=== PATIENT | male | born 1955 | race Caucasian/White ===

== ENCOUNTER → 2017-09-13 | Outpatient (CLI) | payer OTHER ==
[~2017-09-13] MED LIST: ALLOPURINOL; ALLOPURINOL100 MG PO; AMLODIPINE; ASPIRIN ADULT L81 M1 PO; ATENOLOL50 M1 PO; COZAAR25 M1 PO; FIORICET 50-301 EACH PO; FLOMAX0.4 MG PO; KEFLEX500 M1 PO; KETOROLAC10 MG PO; NAPROSYN500 MG PO; NORVASC2.5 MG PO; PERCOCET 325 MG1 TA7 PO; PROSCAR5 M1 PO; SIMVASTATIN; TENORMIN; TOPROL XL25 MG PO; [UNRECOGNIZED DRUG - OTHER]
== END | disposition home or self-care (01) ==
LOC: RAD 10:53
DX: J40 Bronchitis, not specified as acute or chronic (principal)

== ENCOUNTER 2018-11-09 15:37 | Inpatient (IN) | payer OTHER ==
[~2018-11-09] VITALS: Ht 187.9 cm; Wt 122.2 kg
--- NOTE | ~2018-11-09 | EKG ---
[place], [place] ELECTROCARDIOGRAM REPORT NAME: DAPHNE ZUNIGA UNIT #: [id number] ROOM: 415 DOCTOR: AZAEL DRAFT REPORT BIRTHDATE: [birth year] [facility] Test Date: 2018-11-09 Test Time: 15:55:45 Pat Name: DAPHNE ZUNIGA Department: ER Room: [facility] Gender: M Lathe Sander: Trent Mendoza : 1955 Requested By: ANGY STEVENSON Order Number: [id number] Reading MD: David Armando MD Measurements Intervals Mcintosh Rate: 86 P: [place]: QRS: 1 QRSD: 104 T: 14 QT: 405 QTc: 485 Interpretive Statements Atrial fibrillation Abnormal R-wave progression, late transition Inferior infarct, old Electronically Signed On 11-09-2018 17:35:28 PST by David Armando MD CM:EKGRPT:ELECTROCARDIOGRAM REPORT [id number] ANGY ADDISON DRAFT REPORT ANGY STEVENSON M.D.
--- NOTE | ~2018-11-09 | CON ---
[place], [place] REPORT OF CONSULTATION NAME[id number] UNIT #: [id number] ROOM: 415 DOCTOR: JESSICA BENSON MD BIRTHDATE: [birth year] DOS: 11/10/2018 CARDIOLOGY CONSULTATION REASON FOR CONSULTATION: Newly documented atrial fibrillation. HISTORY OF PRESENT ILLNESS: The patient is a 63-year-old man who was seen at his bedside on 11/10/2018. 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 He states that he was seen by Dr. Juan Carlos Avelar about 7-8 years ago and was told that he had an irregular heartbeat. He was further evaluated by the [facility] survey research analyst at that time. He tells me that an echo and a stress test were normal and no further cardiac followup was obtained. He was kept on an aspirin daily. He has never been on anticoagulation. He denies any history of stroke or heart attack. Recently, he has had trouble controlling his blood pressure. He was seen at [facility] on 11/09/2018 and noted to be in an irregular rhythm. Electrocardiogram confirmed atrial fibrillation. He was sent to the Emergency Room, where an electrocardiogram again showed atrial fibrillation and he was admitted. The patient was unaware of his irregular heartbeat and specifically denies any recent change in exercise capacity. He denies palpitations, lightheadedness, syncope, orthopnea, PND or peripheral edema. Since he has been in the hospital, he has remained in atrial fibrillation with a controlled ventricular response. Troponin levels have been normal and a TSH was normal. He had an echocardiogram this morning at his bedside. I looked at the images preliminarily and he has normal left ventricular size and function with mild left atrial enlargement. No significant valve disease is present. PAST MEDICAL HISTORY: Includes: 1. Essential hypertension. 2. Gout. 3. Hyperlipidemia. 4. Atrial fibrillation, first documented on 11/09/2018. MEDICATIONS: Prior to admission: Allopurinol 100 mg per day, amlodipine 10 mg per day, aspirin 81 mg per day, losartan with hydrochlorothiazide 50/12.5 one tablet daily, metoprolol succinate 25 mg b.i.d., and ranitidine 150 mg b.i.d. ALLERGIES: SULFA DRUGS, MORPHINE AND CODEINE. FAMILY HISTORY: Both of his parents were heavy smokers. Both of them had high blood pressure and of complications of this and vascular disease. REVIEW OF SYSTEMS: The patient denies diplopia or loss of vision. He denies lightheadedness or syncope. Denies any focal weakness. He denies orthopnea or PND. He does have occasional mild headaches, especially when his blood pressure is elevated. He denies fevers, chills, sweats or recent weight change. He [place], [place] REPORT OF CONSULTATION NAME: DAPHNE ZUNIGA UNIT #: [id number] ROOM: 415 DOCTOR: JESSICA BENSON MD BIRTHDATE: [birth year] denies dyspnea on exertion. He denies hemoptysis or hematemesis. He denies cough, fevers or chills. He denies change in bowel or bladder habits and denies blood in his stools or urine. He denies skin rashes. He denies any peripheral edema. He does have pain in his ankle after an injury and 2 surgeries. The remainder of the review of systems is negative except as noted above. 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 He is . He does not smoke or consume significant amounts of alcohol. PHYSICAL EXAMINATION: GENERAL: The patient is well-nourished white male, who is awake, alert and oriented. VITAL SIGNS: Pulse is 90 and irregularly irregular. Blood pressure is 150/96. He is afebrile. He weighs 122.2 kilograms and has a body mass index of 34.6. HEENT: Normocephalic, atraumatic. Extraocular muscles are intact. Sclerae are clear. Pupils are equal, round and react to light. The oral mucosa is moist. Tongue is midline. NECK: Supple. He has no jugular distention. Carotids are full. He has no bruits. He has no neck or supraclavicular masses, no thyromegaly. LUNGS: Respirations are unlabored. His chest is clear to auscultation and percussion. He has no presacral edema or chest wall tenderness. CARDIOVASCULAR: His heart has an irregularly irregular rhythm without murmurs or gallops. The PMI is not displaced. He has no precordial heave, lift or thrill. ABDOMEN: Soft and normally active without masses, organomegaly or bruits. EXTREMITIES: Showed no clubbing, cyanosis or edema. His left ankle is somewhat more swollen than the right from an old injury. He does have good hair growth on his feet and peripheral pulses are full and equal bilaterally. LABORATORY DATA: I reviewed his electrocardiogram, which showed atrial fibrillation with a controlled ventricular response. He does have inferior Q-waves, but no acute ST or T-wave changes. Hemoglobin is 15.2, white count 6200, platelet count 219,000. INR 1.0. Sodium 139, potassium 3.2, chloride 105, CO2 of 27, BUN 15, creatinine 0.94. Troponin levels have been normal x 3. TSH is normal at 1.9. IMPRESSION: 1. Newly documented atrial fibrillation. The patient has no symptoms and was surprised to find that his heart was irregular. 2. [id number] score equals 1, predicting an increased risk for stroke. 3. History of hypertension. 4. History of gout. PLAN: I spent considerable time discussing atrial fibrillation with the patient. His CHADS-VASc score is 1, but will increase with time. He is a very active man and is otherwise relatively healthy and therefore, I think that aggressive stroke prophylaxis is appropriate. I would start him on Xarelto once a day and stop all antiplatelet agents. We will continue to work on his blood pressure and I think we can increase his losartan at this point to try to get better control of the blood pressure. I do not think that any further inpatient [place], [place] REPORT OF CONSULTATION NAME: DAPHNE ZUNIGA UNIT #: [id number] ROOM: 415 DOCTOR: JESSICA BENSON MD BIRTHDATE: [birth year] workup is needed and he can be discharged to home from my perspective to be followed up in our office in the near future. At this point, I would not consider a rhythm control strategy since he has absolutely no symptoms. If we decide to do that, I would wait until he has been anticoagulated for at least a month in order to make the procedure as safe as possible, but at this point, I do not see any good reason to pursue that. I thank the hospitalist physicians for asking our advice regarding his care. JESSICA BENSON MD CM:CONSTR:REPORT OF CONSULTATION [id number] 11/10/18 1118 interface
[~2018-11-09 15:37] MED LIST changes: -COZAAR25 M1 PO; +LOSARTAN-HCTZ1 EACH PO
[2018-11-09 15:39] VITALS: BP 148/108
[2018-11-09 16:43] LABS: BASO # 0.1 10*3/uL (0.0-0.1); BASO % 1.4 % (0.0-1.0); EOS # 0.2 10*3/uL (0.0-0.4); EOS % 2.8 % (1.0-4.0); HEMATOCRIT 46.7 % (42.0-52.0); HEMOGLOBIN 15.8 g/dl (14.0-18.0); LYMPH # 1.7 10*3/uL (1.3-4.4); LYMPH % 26.7 % (27.0-41.0); MEAN CELL VOLUME 88.4 fl (80.0-94.0); MEAN CORPUSCULAR HGB 29.9 pg (27.0-31.0); MEAN CORPUSCULAR HGB CONC 33.8 g/dl (33.0-37.0); MEAN PLATELET VOLUME 9.2 fl (9.6-12.3); MONO # 0.6 10*3/uL (0.1-1.0); MONO % 9.7 % (3.0-9.0); NEUT # 3.9 10*3/uL (2.3-7.9); NEUT % 59.2 % (47.0-73.0); PLATELET COUNT AUTOMATED 215 10*3/uL (130-400); RED BLOOD COUNT 5.28 10*6/uL (4.50-5.90); RED CELL DISTRI WIDTH 12.9 % (0-14.5); WHITE BLOOD COUNT 6.5 10*3/uL (4.8-10.8)
[2018-11-09 17:00] LABS: ALBUMIN 3.9 gm/dl (3.1-4.5); ALKALINE PHOSPHATASE 76 U/L (45-117); BUN 17 mg/dl (7-24); CHLORIDE 104 mmol/L (98-107); CREATININE 1.02 mg/dL (0.70-1.30); POTASSIUM 3.5 mmol/L (3.5-5.1); SGOT/AST 13 IU/L (3-35); SGPT/ALT 31 U/L (12-78); SODIUM 140 mmol/L (136-145); TOTAL PROTEIN 7.4 gm/dL (6.4-8.2)
[2018-11-09 17:01] LABS: TROPONIN I 0.035 ng/ml (<0.045)
[2018-11-09 17:35] VITALS: BP 140/100
[2018-11-09 18:00] VITALS: BP 164/98
[2018-11-09] MEDS ORDERED: ZANTAC 150150 MG PO (18:56)
[2018-11-09 20:00] VITALS: BP 178/102
[2018-11-09 21:15] VITALS: BP 144/92
[2018-11-10] VITALS: BP 140/90
[2018-11-10 04:00] VITALS: BP 150/96
[2018-11-10 06:12] LABS: BASO # 0.1 10*3/uL (0.0-0.1); BASO % 1.3 % (0.0-1.0); EOS # 0.2 10*3/uL (0.0-0.4); EOS % 3.7 % (1.0-4.0); HEMATOCRIT 45.2 % (42.0-52.0); HEMOGLOBIN 15.2 g/dl (14.0-18.0); LYMPH % 32.7 % (27.0-41.0); MEAN CELL VOLUME 88.8 fl (80.0-94.0); MEAN CORPUSCULAR HGB 29.9 pg (27.0-31.0); MEAN CORPUSCULAR HGB CONC 33.6 g/dl (33.0-37.0); MEAN PLATELET VOLUME 9.5 fl (9.6-12.3); MONO # 0.6 10*3/uL (0.1-1.0); NEUT # 3.2 10*3/uL (2.3-7.9); NEUT % 52.1 % (47.0-73.0); PLATELET COUNT AUTOMATED 219 10*3/uL (130-400); RED BLOOD COUNT 5.09 10*6/uL (4.50-5.90); RED CELL DISTRI WIDTH 12.8 % (0-14.5); WHITE BLOOD COUNT 6.2 10*3/uL (4.8-10.8)
[2018-11-10 06:26] LABS: BUN 15 mg/dl (7-24); CHLORIDE 105 mmol/L (98-107); CREATININE 0.94 mg/dL (0.70-1.30); PHOSPHOROUS 2.9 mg/dL (2.5-4.9); POTASSIUM 3.2 mmol/L (3.5-5.1); SODIUM 139 mmol/L (136-145)
[2018-11-10 10:11] VITALS: BP 156/120
[2018-11-10 11:15] VITALS: BP 148/102
[2018-11-10 12:00] VITALS: BP 146/104
[2018-11-10] MEDS ORDERED: XARE20MG PO ×2 (12:31→13:20)
[2018-11-10] MEDS ORDERED: LOSARTAN POTAS100 M1 PO (12:31)
[2018-11-10] MEDS ORDERED: HYDROCHLOROTH12.5 M2 PO (12:31)
== END 2018-11-10 14:50 | disposition home or self-care (01) | DRG 310 ==
LOC: ED 15:37 → EDHOLD 17:43 → 4E 17:43
PROVIDERS: Emergency Medicine; Student in an Organized Health Care Education/Training Program; ADMIT Internal Medicine
DX: I48.91 Unspecified atrial fibrillation (principal); M1A.9XX0 Chronic gout, unspecified, without tophus (tophi); E87.6 Hypokalemia; E78.00 Pure hypercholesterolemia, unspecified; R73.9 Hyperglycemia, unspecified; E66.9 Obesity, unspecified; I10 Essential (primary) hypertension; Z79.82 Long term (current) use of aspirin; Z79.899 Other long term (current) drug therapy; Z88.2 Allergy status to sulfonamides; Z88.5 Allergy status to narcotic agent; Z82.49 Family history of ischemic heart disease and other diseases of the circulatory system; Z68.34 Body mass index [BMI] 34.0-34.9, adult

== ENCOUNTER → 2018-12-20 | Outpatient (CLI) | payer OTHER ==
[~2018-12-20] MED LIST changes: +HYDROCHLOROTH12.5 M2 PO; +LOSARTAN POTAS100 M1 PO; +XARE20MG PO; +ZANTAC 150150 MG PO
== END ==
LOC: RESCLI 01:30
DX: I10 Essential (primary) hypertension (principal); I48.0 Paroxysmal atrial fibrillation; K21.9 Gastro-esophageal reflux disease without esophagitis; J40 Bronchitis, not specified as acute or chronic; M1A.9XX0 Chronic gout, unspecified, without tophus (tophi); Z79.899 Other long term (current) drug therapy; Z88.2 Allergy status to sulfonamides; Z88.8 Allergy status to other drugs, medicaments and biological substances

== ENCOUNTER → 2019-05-21 | Outpatient (CLI) | payer OTHER | END | disposition home or self-care (01) | LOC: RAD 14:53 | DX: M54.5 Low back pain (principal) ==

== ENCOUNTER → 2019-10-17 | Outpatient (CLI) | payer OTHER | END | disposition home or self-care (01) | LOC: RAD 12:06 | DX: R10.32 Left lower quadrant pain (principal) ==

== ENCOUNTER → 2020-06-20 | Outpatient (CLI) | payer OTHER | END | disposition home or self-care (01) | LOC: RESCLI 10:08 | DX: B35.1 Tinea unguium (principal); R35.1 Nocturia; I10 Essential (primary) hypertension; M1A.9XX0 Chronic gout, unspecified, without tophus (tophi); I48.0 Paroxysmal atrial fibrillation; K21.9 Gastro-esophageal reflux disease without esophagitis; R73.09 Other abnormal glucose; E78.5 Hyperlipidemia, unspecified; Z91.09 Other allergy status, other than to drugs and biological substances ==

== ENCOUNTER → 2020-07-22 | Outpatient (CLI) | payer OTHER | END | disposition home or self-care (01) | LOC: COVID19 11:10 | PROVIDERS: ATTEND Nurse Practitioner Primary Care | DX: Z20.828 Contact with and (suspected) exposure to other viral communicable diseases (principal) ==

== ENCOUNTER → 2020-08-29 | Outpatient (CLI) | payer OTHER | END | disposition home or self-care (01) | LOC: COVID19 14:46 | PROVIDERS: ATTEND Physician Assistant | DX: U07.1 COVID-19 (principal) ==

== ENCOUNTER → 2020-10-10 | Outpatient (CLI) | payer OTHER | END | disposition home or self-care (01) | LOC: RESCLI 00:36 | PROVIDERS: ATTEND Internal Medicine | DX: I10 Essential (primary) hypertension (principal); I48.0 Paroxysmal atrial fibrillation; R09.89 Other specified symptoms and signs involving the circulatory and respiratory systems; K21.9 Gastro-esophageal reflux disease without esophagitis; M1A.9XX0 Chronic gout, unspecified, without tophus (tophi); Z91.09 Other allergy status, other than to drugs and biological substances; Z79.899 Other long term (current) drug therapy; Z98.890 Other specified postprocedural states; Z88.8 Allergy status to other drugs, medicaments and biological substances ==

== ENCOUNTER → 2020-10-17 | Outpatient (CLI) | payer OTHER | END | disposition home or self-care (01) | LOC: RESCLI 08:33 | PROVIDERS: ATTEND Student in an Organized Health Care Education/Training Program | DX: I10 Essential (primary) hypertension (principal); I48.0 Paroxysmal atrial fibrillation; K21.9 Gastro-esophageal reflux disease without esophagitis; E78.5 Hyperlipidemia, unspecified; M1A.9XX0 Chronic gout, unspecified, without tophus (tophi) ==

== ENCOUNTER → 2021-06-01 | Outpatient (CLI) | payer MEDICARE | END | disposition home or self-care (01) | LOC: RAD 11:28 | PROVIDERS: ATTEND Nurse Practitioner Primary Care | DX: M43.17 Spondylolisthesis, lumbosacral region (principal); M47.816 Spondylosis without myelopathy or radiculopathy, lumbar region; M99.03 Segmental and somatic dysfunction of lumbar region; M51.26 Other intervertebral disc displacement, lumbar region; M99.05 Segmental and somatic dysfunction of pelvic region; M16.12 Unilateral primary osteoarthritis, left hip; M48.061 Spinal stenosis, lumbar region without neurogenic claudication; M25.78 Osteophyte, vertebrae ==

== ENCOUNTER → 2021-10-28 | Outpatient (CLI) | payer MEDICARE | END | disposition home or self-care (01) | LOC: COVID19 16:16 | PROVIDERS: ATTEND Student in an Organized Health Care Education/Training Program | DX: Z11.52 Encounter for screening for COVID-19 (principal) ==

== ENCOUNTER → 2022-01-06 | Outpatient (CLI) | payer MEDICARE ==
[2022-01-06 07:39] LABS: HEMATOCRIT 50.3 % (42.0-52.0); MEAN CELL VOLUME 89.7 fl (80.0-94.0); MEAN CORPUSCULAR HGB 29.8 pg (27.0-31.0); MEAN CORPUSCULAR HGB CONC 33.2 g/dl (33.0-37.0); RED BLOOD COUNT 5.61 10*6/uL (4.50-5.90); RED CELL DISTRI WIDTH 12.8 % (0-14.5); WHITE BLOOD COUNT 7.3 10*3/uL (4.8-10.8)
[2022-01-06 08:07] LABS: ALKALINE PHOSPHATASE 62 U/L (45-117); BUN 23 mg/dl (7-24); CHLORIDE 106 mmol/L (98-107); CHOLESTEROL 231 mg/dL (<200); CREATININE 1.21 mg/dL (0.70-1.30); LDL CHOLESTEROL 156 mg/dL (9-159); POTASSIUM 3.8 mmol/L (3.5-5.1); SGOT/AST 16 IU/L (3-35); SGPT/ALT 31 U/L (12-78); SODIUM 140 mmol/L (136-145); TOTAL PROTEIN 7.6 gm/dL (6.4-8.2); TRIGLYCERIDES 175 mg/dl (<150)
== END | disposition home or self-care (01) ==
LOC: LAB 07:14
PROVIDERS: ATTEND Physician Assistant
DX: I48.0 Paroxysmal atrial fibrillation (principal); Z12.5 Encounter for screening for malignant neoplasm of prostate; I10 Essential (primary) hypertension; R53.83 Other fatigue

== ENCOUNTER → 2022-04-09 | Outpatient (CLI) | payer MEDICARE | END | disposition home or self-care (01) | LOC: RESCLI 00:31 | PROVIDERS: ATTEND Internal Medicine | DX: I10 Essential (primary) hypertension (principal); K21.9 Gastro-esophageal reflux disease without esophagitis; I48.0 Paroxysmal atrial fibrillation; M10.9 Gout, unspecified; Z79.899 Other long term (current) drug therapy; Z88.8 Allergy status to other drugs, medicaments and biological substances ==

== ENCOUNTER → 2022-07-08 | Outpatient (CLI) | payer MEDICARE | END | disposition home or self-care (01) | LOC: RAD 12:39 | PROVIDERS: ATTEND Internal Medicine | DX: S20.219A Contusion of unspecified front wall of thorax, initial encounter (principal); X58.XXXA Exposure to other specified factors, initial encounter; Y93.89 Activity, other specified; Y92.89 Other specified places as the place of occurrence of the external cause; Y99.8 Other external cause status ==

== ENCOUNTER → 2023-02-24 | Outpatient (CLI) | payer MEDICARE | END | disposition home or self-care (01) | LOC: RESCLI 00:43 | PROVIDERS: ATTEND Internal Medicine | DX: M71.30 Other bursal cyst, unspecified site (principal); I10 Essential (primary) hypertension; I48.0 Paroxysmal atrial fibrillation; Z98.890 Other specified postprocedural states; Z88.5 Allergy status to narcotic agent; Z88.0 Allergy status to penicillin; Z88.8 Allergy status to other drugs, medicaments and biological substances; Z79.899 Other long term (current) drug therapy ==